=== PATIENT | female | born 1960 | race Caucasian/White ===

== ENCOUNTER 2017-06-30 09:30 | Day surgery (SDC) | payer OTHER ==
[~2017-06-30 09:30] MED LIST: LIDOCAINE HCL 1% MPF SOL ONE; PROPOFOL 500 MG/50 ML EMU IV ONE
[2017-06-30 11:02] VITALS: TEMP 97.6
[2017-06-30 11:31] VITALS: BP 118/80; PULSE 73; RESP 18; O2SAT 100
== END 2017-06-30 11:52 | disposition home or self-care (01) | DRG 951 ==
LOC: SURG 09:30
PROVIDERS: ATTEND Surgery
DX: Z12.11 Encounter for screening for malignant neoplasm of colon (principal); Z80.0 Family history of malignant neoplasm of digestive organs
CPT/HCPCS: J2001; J2704